=== PATIENT | male | born 1990 | race Caucasian/White ===

== ENCOUNTER 2024-10-26 21:53 | Emergency (ER) | payer MEDICAID ==
[~2024-10-26] VITALS: Ht 175.3 cm; Wt 128.0 kg
[2024-10-26 22:06] VITALS: O2SAT 99
[2024-10-26 22:34] LABS: BASOPHILS % 0.4 % (0.0-2.0); EOSINOPHILS % 0.4 % (0.0-5.0); HEMATOCRIT. 40.4 % (42.0-52.0); HEMOGLOBIN. 13.7 g/dL (14.0-18.0); LYMPHOCYTES % 17.3 % (20.0-50.0); MEAN PLATELET VOLUME 8.4 fl (7.4-10.4); MONOCYTES % 11.5 % (2.0-8.0); NEUTROPHILS % 70.4 % (40.0-76.0); PLATELET 253 x1000/uL (130-400); RED BLOOD CELL COUNT 4.58 mill/uL (4.7-6.1); RED CELL DISTRIBUTION WIDTH 13.6 % (11.6-14.6)
[2024-10-26 22:47] LABS: CREATININE 1.1 mg/dL (0.6-1.3)
[2024-10-26 22:48] LABS: UREA NITROGEN BLOOD 13 mg/dL (9-23)
[2024-10-26 22:49] LABS: ASPARTATE AMINOTRANSFERASE 71 IU/L (<34)
[2024-10-26 22:50] LABS: BILIRUBIN DIRECT 0.1 mg/dL (<=3.0); BILIRUBIN TOTAL 0.5 mg/dL (0.1-1.0); PROTEIN TOTAL 7.8 g/dL (6.0-8.3)
[2024-10-26] MEDS: ONDANSETRON HCL 4MG TABLET PO ONE (23:22)
[2024-10-26] MEDS: DOCUSATE SODIUM 100MG CAPSULE PO ONE (23:23)
[2024-10-26] MEDS: ACETAMINOPHEN 500MG TABLET PO ONE (23:23)
[2024-10-26] MEDS: POLYETHYLENE GLYCOL 3350 (17GM) 1 DOSE PACK PO ONE (23:23)
[2024-10-26 23:43] LABS: CLARITY URINE CLEAR (CLEAR); COLOR URINE YELLOW (YELLOW); GLUCOSE URINE NEGATIVE (NEGATIVE); KETONES URINE NEGATIVE (NEGATIVE); LEUKOCYTE ESTERASE URINE NEGATIVE (NEGATIVE); NITRITE URINE NEGATIVE (NEGATIVE); OCCULT BLOOD URINE NEGATIVE (NEGATIVE); PH URINE 5.5 (4.5-8.0); PROTEIN URINE NEGATIVE (NEGATIVE); SPECIFIC GRAVITY URINE 1.022 (1.005-1.030); UROBILINOGEN URINE 0.2 E.U./dL (0.2-1.0)
[2024-10-27 00:04] VITALS: BP 140/97; PULSE 102; RESP 16; TEMP 37.5; O2SAT 97
[2024-10-27] MEDS ORDERED: POLY17PO3 MT (00:10)
== END 2024-10-27 00:22 | disposition home or self-care (01) ==
LOC: ER 21:53
DX: K59.00 Constipation, unspecified (principal); K62.5 Hemorrhage of anus and rectum; D64.9 Anemia, unspecified; E11.9 Type 2 diabetes mellitus without complications; I10 Essential (primary) hypertension; Z88.0 Allergy status to penicillin
CPT/HCPCS: 80076; 80048; 81003; 83690; 85025; 36415; 99284; Q0162; Z7610